=== PATIENT | female | born 1940 | race Caucasian/White ===

== ENCOUNTER 2017-03-14 15:30 | Emergency (ER) | payer OTHER, MEDICARE ==
[~2017-03-14] VITALS: Ht 154.9 cm; Wt 95.9 kg
[~2017-03-14 15:30] MED LIST: AMLODIPINE BESYL5 MG PO; COUMADIN3 MG PO; GLUCOSAMINE1000 MG PO; HYDROCODON-ACE1 EAC7 PO; LABETALOL HCL200 MG PO; LOPRESSOR50 MG PO; TYLENOL EXTRA500 MG PO; WARFARIN SODIUM4 MG PO
[2017-03-14 20:23] LABS: HEMATOCRIT 46.3 % (36.0-46.0); MCH 31.5 PG (29.0-34.0); MCHC 34.1 G/DL (30.0-36.0); MCV 92.2 FL (83-99); MEAN PLAT.VOLUME 9.9 uM^3 (9.5-12.4); PLATELET COUNT 265 K/uL (156-360); RBC DIS.WIDTH-CV 13.4 % (11.8-14.6); RBC DIS.WIDTH-SD 45.3 % (39-53); RED BLOOD COUNT 5.02 M/uL (3.80-5.20); WHITE BLOOD COUNT 7.2 K/uL (4.1-10.2)
[2017-03-14 20:29] LABS: PROTHROMBIN TIME 34.5 SEC (10.2-12.9)
[2017-03-14 20:31] LABS: D-DIMER ELISA < 150.00 ng/mLDDU (<230)
[2017-03-14 20:32] LABS: CHLORIDE 106 mEq/L (99-109); POTASSIUM 3.7 mEq/L (3.7-5.4); PTT 41.4 SEC (25-37); SODIUM 141 mEq/L (136-147)
[2017-03-14 20:33] LABS: GLUCOSE 87 mg/dL (70-99)
[2017-03-14 20:35] LABS: ANION GAP 10 MEQ/L (2-14)
[2017-03-14 20:37] LABS: GFR ESTIMATE (CALCULATED) > 59 mL/min/
[2017-03-14 20:38] LABS: UREA NITROGEN (BUN) 13 mg/dL (9-23)
[2017-03-14 20:45] LABS: TROP-I INTERPRETATION NEGATIVE; TROPONIN-I 0.02 ng/mL (0.0-0.30)
[2017-03-14] MEDS ORDERED: ATARAX,VISTARIL25 MG PO (21:52)
[2017-03-14 22:26] VITALS: BP 217/128
== END 2017-03-14 22:30 | disposition left against medical advice (07) ==
LOC: EME 15:30
PROVIDERS: Physician Assistant
DX: R06.02 Shortness of breath (principal); F43.22 Adjustment disorder with anxiety; J81.1 Chronic pulmonary edema; I10 Essential (primary) hypertension; F32.9 Major depressive disorder, single episode, unspecified; I48.91 Unspecified atrial fibrillation; Z79.01 Long term (current) use of anticoagulants; K21.9 Gastro-esophageal reflux disease without esophagitis; Z85.41 Personal history of malignant neoplasm of cervix uteri; Z86.73 Personal history of transient ischemic attack (TIA), and cerebral infarction without residual deficits; Z87.891 Personal history of nicotine dependence; Z88.0 Allergy status to penicillin
CPT/HCPCS: 71020; 80048; 84484; 85027; 85379; 85610; 85730; 90839; 93005; 99281; 99284

== ENCOUNTER 2017-06-13 17:18 | Inpatient (IN) | payer OTHER ==
[~2017-06-13] VITALS: Ht 154.9 cm; Wt 102.9 kg
[~2017-06-13 17:18] MED LIST changes: +ATARAX,VISTARIL25 MG PO
[2017-06-13 18:54] LABS: HEMATOCRIT 46.3 % (36.0-46.0); HEMOGLOBIN 15.9 G/DL (11.9-15.5); MCH 31.4 PG (29.0-34.0); MCHC 34.3 G/DL (30.0-36.0); MCV 91.5 FL (83-99); PLATELET COUNT 230 K/uL (156-360); RBC DIS.WIDTH-CV 14.2 % (11.8-14.6); RBC DIS.WIDTH-SD 47.9 % (39-53); RED BLOOD COUNT 5.06 M/uL (3.80-5.20); WHITE BLOOD COUNT 12.3 K/uL (4.1-10.2)
[2017-06-13 19:03] LABS: ALBUMIN 4.6 g/dL (3.2-4.8); CHLORIDE 103 mEq/L (99-109); POTASSIUM 3.7 mEq/L (3.7-5.4); SODIUM 140 mEq/L (136-147)
[2017-06-13 19:05] LABS: GLUCOSE 120 mg/dL (70-99)
[2017-06-13 19:06] LABS: TOTAL PROTEIN 8.2 g/dL (6.4-8.3)
[2017-06-13 19:09] LABS: ALKALINE PHOSPHATASE 75 IU/L (3-129); CREATININE 0.7 mg/dL (0.6-1.3); GFR ESTIMATE (CALCULATED) > 59 mL/min/
[2017-06-13 19:10] LABS: UREA NITROGEN (BUN) 14 mg/dL (9-23)
[2017-06-13 19:11] LABS: AST (GOT) 207 IU/L (2-34)
[2017-06-13 19:12] LABS: ALT (GPT) 220 IU/L (3-49)
[2017-06-13 19:16] LABS: TROP-I INTERPRETATION NEGATIVE; TROPONIN-I 0.03 ng/mL (0.0-0.30)
[2017-06-13 20:05] LABS: PTT 34.5 SEC (25-37)
[2017-06-13 20:14] LABS: INTER. NORMALIZED RATIO 2.8
[2017-06-13] MEDS ORDERED: VENTOLIN HFA18 GM IH (22:07)
[2017-06-13] MEDS ORDERED: VITAMIN D2000 UNI1 PO (22:07)
[2017-06-13] MEDS ORDERED: ONE DAILY FOR1 EAC3 PO (22:09)
[2017-06-13] MEDS ORDERED: B-COMPLEX-VITA1 EACH PO (22:10)
[2017-06-13] MEDS ORDERED: PREDNISONE20 MG PO (22:12)
[2017-06-13 23:12] LABS: APPEARANCE TURBID ((CLEAR)); BILIRUBIN NEGATIVE; BLOOD NEGATIVE; COLOR AMBER ((YELLOW)); GLUCOSE (STRIP) NEGATIVE; KETONES NEGATIVE; LEUKOCYTES NEGATIVE; NITRITE NEGATIVE; PROTEIN (STRIP) 30; SPECIFIC GRAVITY 1.013 (1.000-1.030); UROBILINOGEN 0.2 MG/DL (0.2-1.0)
[2017-06-13 23:49] LABS: EPITHELIAL CELLS 1+ /HPF; MUCUS 1+ /LPF; RED BLOOD CELLS NONE SEEN /HPF (0-5); WHITE BLOOD CELLS 0-5 /HPF (0-5)
[2017-06-13 23:50] LABS: AMORPHOUS URATES CRYSTALS 3+; BACTERIA 1+ /HPF; UCUL ADDED? NO
[2017-06-14 01:52] LABS: TROP-I INTERPRETATION NEGATIVE; TROPONIN-I 0.04 ng/mL (0.0-0.30)
[2017-06-14 02:26] VITALS: BP 133/85
[2017-06-14 07:02] LABS: HEMATOCRIT 42.3 % (36.0-46.0); MCH 30.6 PG (29.0-34.0); MCHC 33.1 G/DL (30.0-36.0); MCV 92.4 FL (83-99); PLATELET COUNT 209 K/uL (156-360); RBC DIS.WIDTH-CV 14.5 % (11.8-14.6); RBC DIS.WIDTH-SD 49.4 % (39-53); RED BLOOD COUNT 4.58 M/uL (3.80-5.20); WHITE BLOOD COUNT 9.8 K/uL (4.1-10.2)
[2017-06-14 07:09] LABS: INTER. NORMALIZED RATIO 2.3
[2017-06-14 07:23] LABS: TROP-I INTERPRETATION NEGATIVE; TROPONIN-I 0.04 ng/mL (0.0-0.30)
[2017-06-14 07:46] VITALS: BP 145/82
[2017-06-14 08:03] LABS: ALBUMIN 3.9 G/DL (3.2-4.8); ALKALINE PHOSPHATASE 61 IU/L (3-129); ALT (GPT) 130 IU/L (3-49); AST (GOT) 83 IU/L (2-34); CHLORIDE 97 MEQ/L (99-109); CREATININE 0.7 MG/DL (0.6-1.3); DIRECT BILIRUBIN 0.3 mg/dL (0.0-0.3); GFR ESTIMATE (CALCULATED) > 59 mL/min/; GLUCOSE 138 mg/dL (70-99); POTASSIUM 4.1 MEQ/L (3.7-5.4); SODIUM 136 MEQ/L (136-147); TOTAL BILIRUBIN 1.3 MG/DL (0.0-1.0); TOTAL PROTEIN 6.5 G/DL (6.4-8.3); UREA NITROGEN (BUN) 13 mg/dL (9-23)
[2017-06-14 11:55] VITALS: BP 144/90
[2017-06-14 17:17] VITALS: BP 152/85
[2017-06-14 19:38] VITALS: BP 136/95
[2017-06-15 01:10] VITALS: BP 148/85
[2017-06-15 04:47] VITALS: BP 150/86
[2017-06-15 05:35] LABS: BASOPHIL (%) 0.7 % (0-1); BASOPHIL COUNT 0.1 K/uL (0-0.1); EOSINOPHIL (%) 0.3 % (0-5); HEMATOCRIT 43.7 % (36.0-46.0); HEMOGLOBIN 15.1 G/DL (11.9-15.5); IMMATURE GRANULOCYTE (%) 0.9 % (0.0-0.7); LYMPHOCYTE (%) 12.2 % (15-42); LYMPHOCYTE COUNT 1.1 K/uL (1.0-2.8); MCH 31.7 PG (29.0-34.0); MCHC 34.6 G/DL (30.0-36.0); MCV 91.6 FL (83-99); MONOCYTE (%) 10.1 % (3-12); MONOCYTE COUNT 0.9 K/uL (0-0.8); NEUTROPHIL (%) 75.8 % (45-76); NEUTROPHIL COUNT 6.8 K/uL (1.8-6.4); PLATELET COUNT 196 K/uL (156-360); RBC DIS.WIDTH-CV 13.8 % (11.8-14.6); RBC DIS.WIDTH-SD 46.8 % (39-53); RED BLOOD COUNT 4.77 M/uL (3.80-5.20)
[2017-06-15 05:37] LABS: INTER. NORMALIZED RATIO 2.3
[2017-06-15 06:05] LABS: CHLORIDE 90 MEQ/L (99-109); CREATININE 0.7 MG/DL (0.6-1.3); GFR ESTIMATE (CALCULATED) > 59 mL/min/; GLUCOSE 126 mg/dL (70-99); POTASSIUM 3.5 MEQ/L (3.7-5.4); SODIUM 134 MEQ/L (136-147); UREA NITROGEN (BUN) 17 mg/dL (9-23)
[2017-06-15 08:46] VITALS: BP 122/70
[2017-06-15 12:27] VITALS: BP 130/78
[2017-06-15 16:41] VITALS: BP 147/87
[2017-06-15 19:00] VITALS: BP 143/60
[2017-06-16 00:03] VITALS: BP 112/67
[2017-06-16 04:04] VITALS: BP 134/82
[2017-06-16 05:47] LABS: INTER. NORMALIZED RATIO 2.1
[2017-06-16 08:35] LABS: HEMATOCRIT 44.3 % (36.0-46.0); HEMOGLOBIN 15.2 G/DL (11.9-15.5); MCH 31.9 PG (29.0-34.0); MCHC 34.3 G/DL (30.0-36.0); MCV 92.9 FL (83-99); PLATELET COUNT 202 K/uL (156-360); RBC DIS.WIDTH-CV 13.8 % (11.8-14.6); RBC DIS.WIDTH-SD 47.5 % (39-53); RED BLOOD COUNT 4.77 M/uL (3.80-5.20); WHITE BLOOD COUNT 9.2 K/uL (4.1-10.2)
[2017-06-16 08:44] LABS: CHLORIDE 96 MEQ/L (99-109); POTASSIUM 4.1 MEQ/L (3.7-5.4); SODIUM 136 MEQ/L (136-147)
[2017-06-16 08:49] LABS: CREATININE 0.6 MG/DL (0.6-1.3); GFR ESTIMATE (CALCULATED) > 59 mL/min/; GLUCOSE 123 mg/dL (70-99); UREA NITROGEN (BUN) 21 mg/dL (9-23)
[2017-06-16 09:51] VITALS: BP 132/63
[2017-06-16 12:53] VITALS: BP 127/61
[2017-06-16 17:26] VITALS: BP 125/67
[2017-06-16 20:00] VITALS: BP 136/68
[2017-06-17 00:25] VITALS: BP 137/74
[2017-06-17 05:26] VITALS: BP 148/93
[2017-06-17 06:16] LABS: CHLORIDE 95 MEQ/L (99-109); CREATININE 0.6 MG/DL (0.6-1.3); GFR ESTIMATE (CALCULATED) > 59 mL/min/; GLUCOSE 112 mg/dL (70-99); POTASSIUM 4.1 MEQ/L (3.7-5.4); SODIUM 135 MEQ/L (136-147); UREA NITROGEN (BUN) 20 mg/dL (9-23)
[2017-06-17 08:14] VITALS: BP 137/63
[2017-06-17 11:14] VITALS: BP 113/79
[2017-06-17 15:14] VITALS: BP 122/72
[2017-06-18 00:26] VITALS: BP 110/74
[2017-06-18 04:10] VITALS: BP 144/63
[2017-06-18 07:14] LABS: INTER. NORMALIZED RATIO 2.3
[2017-06-18 08:45] VITALS: BP 158/72
[2017-06-18 12:07] VITALS: BP 149/67
[2017-06-18 16:34] VITALS: BP 140/73
[2017-06-18 21:25] VITALS: BP 118/78
[2017-06-19] VITALS (7 sets, daily range): BP systolic 136–191; BP diastolic 64–93
[2017-06-19 12:52] LABS: INTER. NORMALIZED RATIO 2.8
[2017-06-20 09:41] LABS: INTER. NORMALIZED RATIO 3.3
[2017-06-20 09:58] VITALS: BP 164/103
[2017-06-20 11:59] VITALS: BP 184/93
[2017-06-20] MEDS ORDERED: FUROSEMIDE40 MG PO (12:39)
[2017-06-20] MEDS ORDERED: MUCINEX600 MG PO (12:40)
[2017-06-20] MEDS ORDERED: PREDNISONE10 MG PO (12:40)
[2017-06-20 15:42] VITALS: BP 179/77
[2017-06-20 16:00] VITALS: BP 168/76
== END 2017-06-20 20:14 | disposition home or self-care (01) | DRG 293 ==
LOC: EME 17:18 → 4EAST 22:47 → EDOF 22:47 → ENRESERV 22:49 → 4EAST 06-14 02:19 → ENRESERV 06-14 13:52 → 5WEST 06-14 16:14
PROVIDERS: Hospitalist; Internal Medicine; Nurse Practitioner Adult Health; Physician Assistant Medical
DX: I50.33 Acute on chronic diastolic (congestive) heart failure (principal); J06.9 Acute upper respiratory infection, unspecified; I48.0 Paroxysmal atrial fibrillation; F41.9 Anxiety disorder, unspecified; I11.0 Hypertensive heart disease with heart failure; E66.9 Obesity, unspecified; Z86.73 Personal history of transient ischemic attack (TIA), and cerebral infarction without residual deficits; Z90.11 Acquired absence of right breast and nipple; Z90.710 Acquired absence of both cervix and uterus; Z90.49 Acquired absence of other specified parts of digestive tract; Z87.891 Personal history of nicotine dependence; Z85.41 Personal history of malignant neoplasm of cervix uteri; Z85.3 Personal history of malignant neoplasm of breast; Z83.3 Family history of diabetes mellitus; Z82.49 Family history of ischemic heart disease and other diseases of the circulatory system; Z79.01 Long term (current) use of anticoagulants; T38.0X5A Adverse effect of glucocorticoids and synthetic analogues, initial encounter
CPT/HCPCS: 71046; 80048; 80053; 80076; 81003; 83880; 84484; 85025; 85027; 85610; 85730; 87502; 93005; 93306; 94640; 94640 76; 94799; 99202; 99281; 99285; J1160; J1940; J2930; J7512; Q0177